=== PATIENT | female | born 1985 | race Caucasian/White ===

== ENCOUNTER 2020-02-04 14:56 | Emergency (ER) | payer OTHER ==
[2020-02-04] MEDS ORDERED: LIDOCAINE 1% INJ-PF (10 MG/ML) 30 ML SDV INJ ONE (15:05)
--- NOTE | 2020-02-04 15:10 | ER Document Report ---
HPI - HPI Patient complains to provider of: finger laceration Time Seen by Provider: 02/04/20 15:00 Onset: Just prior to arrival Onset/Duration: Sudden Quality of pain: Achy Pain Level: 3 Context: Patient was trying to make soup and her fingers on a jagged lid of a can that was dented. Patient with laceration to palmar surface of the left second and fifth finger. Associated Symptoms: Other - Finger lacerations Exacerbated by: Movement Relieved by: Denies Similar symptoms previously: No Recently seen / treated by doctor: No - ROS ROS below otherwise negative: Yes Systems Reviewed and Negative: Yes All other systems reviewed and negative - NEURO Neurology: DENIES: Weakness - GASTROINTESTINAL Gastrointestinal: DENIES: Nausea - MUSCULOSKELETAL Musculoskeletal: REPORTS: Extremity pain - DERM Skin Color: Normal Skin Problems: Laceration Past Medical History - General Information source: Patient - Social History Smoking Status: Never Smoker Frequency of alcohol use: Occasional Drug Abuse: None Lives with: Family Family History: Reviewed & Not Pertinent - Past Medical History Cardiac Medical History: Reports: Other - ASD Past Surgical History: Reports: Hx Breast Surgery, Hx Cholecystectomy, Other - Deviated septum Vertical Provider Document - CONSTITUTIONAL Agree With Documented VS: Yes Exam Limitations: No Limitations General Appearance: WD/WN, No Apparent Distress - HEENT HEENT: Atraumatic, Normocephalic - NECK Neck: Normal Inspection - RESPIRATORY Respiratory: No Respiratory Distress - CARDIOVASCULAR Pulses: Normal: Radial - MUSCULOSKELETAL/EXTREMETIES Musculoskeletal/Extremeties: MAEW, FROM, Tender - Left second and fifth fingertips - NEURO Level of Consciousness: Awake, Alert, Appropriate Motor/Sensory: No Motor Deficit - DERM Integumentary: Warm, Dry, Laceration - Laceration to palmar surface of left second finger (1.5 cm) and fifth fingertip (2 cm), no nail involvement Course - Re-evaluation Re-evalutation: 02/04/20 Patient with laceration to palmar surface of fingers, no findings worrisome for tendon deficit. Discussed worsening signs or symptoms that patient should follow-up with hand surgeon regarding. Patient verbalized understanding and is agreeable discharge plan of care. - Laboratory Results Critical Laboratory Results Reviewed: No Critical Results - Radiology Results Critical Radiology Results Reviewed: No Critical Results Procedures - Laceration/Wound Repair Left Finger 2nd digit Wound length (cm): 1.5 Wound's Depth, Shape: Linear Laceration pre-procedure: Shur-Clens applied Anesthetic type: Other - digital block Volume Anesthetic (mLs): 2 Wound explored: Clean Wound Repaired With: Sutures Suture Size/Type: 5:0, Nylon Number of Sutures: 3 Layer Closure?: No Post-procedure wound care: Sterile dressing applied Post-procedure NV exam normal: Yes Complications: No Hands front picture: 1 - lac Left Finger 5th digit Wound length (cm): 2 Wound's Depth, Shape: Irregular Anesthetic type: Other - digital block Volume Anesthetic (mLs): 2 Wound explored: Clean Wound Repaired With: Sutures Suture Size/Type: 5:0, Nylon Number of Sutures: 6 Layer Closure?: No Post-procedure wound care: Sterile dressing applied Post-procedure NV exam normal: Yes Complications: No Hands front picture: 1 - lac Discharge - Discharge Clinical Impression: Laceration of multiple sites of hand and fingers Qualifiers: Encounter type: initial encounter Laterality: left Qualified Code(s): S61.412A - Laceration without foreign body of left hand, initial encounter Condition: Stable Disposition: HOME, SELF-CARE Instructions: Laceration Care ([facility]), Prophylactic Antibiotic ([facility]) Additional Instructions: Return immediately for any new or worsening symptoms Followup with your primary care provider, call tomorrow to make a followup appointment Suture removal in 9 days Follow-up with hand specialist for any concerning or worsening symptoms Prescriptions: Cephalexin Monohydrate [Keflex 500 mg Capsule] 500 mg PO Q6H 5 Days #20 capsule Referrals: LAYNE BROWN DO [ACTIVE STAFF] - Follow up as needed
[2020-02-04 19:00] VITALS: BP 100/71
== END 2020-02-04 19:00 | disposition home or self-care (01) ==
LOC: ER 14:56
DX: S61.211A Laceration without foreign body of left index finger without damage to nail, initial encounter (principal); S61.217A Laceration without foreign body of left little finger without damage to nail, initial encounter; W26.8XXA Contact with other sharp object(s), not elsewhere classified, initial encounter
CPT/HCPCS: 99284